=== PATIENT | male | born 1955 | race Caucasian/White ===

== ENCOUNTER 2021-04-27 22:38 | Inpatient (IN) | payer MEDICAID, MEDICARE ==
[~2021-04-27] VITALS: Ht 152.4 cm; Wt 58.6 kg
[2021-04-27] MEDS ORDERED: ROPI0.5T3 (23:32)
[2021-04-27] MEDS ORDERED: FURO20TA2 (23:32)
[2021-04-27] MEDS ORDERED: PANT20TA6 PO (23:32)
[2021-04-27] MEDS ORDERED: CARV3.12 PO (23:32)
[2021-04-27] MEDS ORDERED: HYDR-3363 (23:32)
[2021-04-27] MEDS ORDERED: ATOR40TA75 PO (23:32)
[2021-04-27] MEDS ORDERED: SPIR50TA4 (23:32)
[2021-04-27] MEDS ORDERED: MIRT-10 (23:32)
[2021-04-28 00:21] LABS: HEMATOCRIT 29.5 % (42.0-52.0); HEMOGLOBIN 8.8 g/dl (13.5-17.5); MEAN CORPUSCULAR HEMOGLOBIN 22.2 pg (27.0-33.0); MEAN CORPUSCULAR HGB CONC 29.8 g/dl (32.0-36.5); MEAN CORPUSCULAR VOLUME 74.3 fl (80.0-96.0); PLATELET COUNT, AUTOMATED 161 10^3/uL (150-450); RED BLOOD COUNT 3.97 10^6/uL (4.30-6.10); WHITE BLOOD COUNT 6.6 10^3/uL (4.0-10.0)
[2021-04-28 00:47] LABS: AMPHETAMINES LEVEL URINE NEGATIVE (NEGATIVE); BARBITURATES URINE NEGATIVE (NEGATIVE); BENZODIAZEPINES URINE NEGATIVE (NEGATIVE); CANNABINOIDS URINE POSITIVE (NEGATIVE); COCAINE METABOLITE URINE NEGATIVE (NEGATIVE); METHADONE URINE NEGATIVE (NEGATIVE); OPIATES URINE NEGATIVE (NEGATIVE); PHENCYCLIDINE URINE NEGATIVE (NEGATIVE)
[2021-04-28 00:59] LABS: RSV AMPLIFICATION NEGATIVE (NEGATIVE)
[2021-04-28 01:09] LABS: ACETAMINOPHEN LEVEL < 2.0 UG/ML (10.0-30.0); ALBUMIN 2.8 GM/DL (3.2-5.2); ALT/SGPT 17 U/L (12-78); BILIRUBIN,DIRECT 0.1 MG/DL (0.0-0.2); BILIRUBIN,TOTAL 0.4 MG/DL (0.2-1.0); BLOOD UREA NITROGEN 4 MG/DL (7-18); CALCIUM LEVEL 8.1 MG/DL (8.8-10.2); CARBON DIOXIDE LEVEL 26 MEQ/L (21-32); CHLORIDE LEVEL 105 MEQ/L (98-107); CREATININE FOR GFR 0.82 MG/DL (0.70-1.30); ETHYL ALCOHOL (ETHANOL) < 0.003 % (0.000-0.010); GLOMERULAR FILTRATION RATE > 60.0 (>49); GLUCOSE, FASTING 94 MG/DL (70-100); POTASSIUM SERUM 3.3 MEQ/L (3.5-5.1); SALICYLATE LEVEL 8.7 MG/DL (5.0-30.0); SODIUM LEVEL 136 MEQ/L (136-145); THYROID STIMULATING HORMONE 0.806 uIU/ML (0.358-3.740); TOTAL PROTEIN 5.8 GM/DL (6.4-8.2)
[2021-04-28] MEDS ORDERED: ALPRAZolam 0.5 MG TAB PO ONE (01:55)
[2021-04-28] MEDS ORDERED: POTASSIUM CHLORIDE 10MEQ SR TABLET PO ONE (04:30)
[2021-04-28 05:19] LABS: FERRITIN 10 NG/ML (26-388); IRON (FE) 16 UG/DL (65-175); PERCENT SATURATION 5.7 % (19.7-50.0); TOTAL IRON BINDING CAPACITY 283 UG/DL (250-450)
[2021-04-28] MEDS ORDERED: ADV100INH INH (06:32)
[2021-04-28] MEDS ORDERED: MIRT-62 PO (06:32)
[2021-04-28] MEDS ORDERED: HYDR-3363 PO (06:32)
[2021-04-28] MEDS ORDERED: SPIR50TA4 PO (06:32)
[2021-04-28] MEDS ORDERED: ROPI0.5T3 PO (06:32)
[2021-04-28] MEDS ORDERED: ALBU8.5H INH (06:32)
[2021-04-28] MEDS ORDERED: PANT40TA29 PO (06:32)
[2021-04-28] MEDS ORDERED: FURO20TA2 PO (06:32)
[2021-04-28] MEDS ORDERED: MELA1TAB9 PO (06:34)
[2021-04-28] MEDS ORDERED: VITA100093 PO (06:34)
[2021-04-28] MEDS ORDERED: MAALOX 30 ML SUSP *UDC PO PRN (08:00)
[2021-04-28] MEDS ORDERED: MOM 30ML SUSPENSION UDC PO PRN (08:00)
[2021-04-28] MEDS ORDERED: ACETAMINOPHEN TAB 650MG DOSE (2X325MG) PO PRN (08:00)
[2021-04-28 09:30] LABS: VITAMIN B12 LEVEL 731 PG/ML
[2021-04-28 09:31] LABS: FOLATE 6.5 NG/ML
[2021-04-28 09:32] VITALS: BP 108/71
[2021-04-28] MEDS ORDERED: FERR324T2 PO (11:09)
[2021-04-28] MEDS ORDERED: VITATAB73 PO (11:09)
[2021-04-28] MEDS ORDERED: ADV250INH INH (11:09)
[2021-04-28] MEDS ORDERED: VITMTA PO (11:09)
[2021-04-28] MEDS ORDERED: FOLI1TAB11 PO (11:09)
[2021-04-28] MEDS ORDERED: LIDVISCBTL SSP (11:09)
[2021-04-28] MEDS ORDERED: GABA-283 PO (11:09)
[2021-04-28] MEDS ORDERED: CARV12.5 PO (11:09)
[2021-04-28] MEDS ORDERED: THIA100T7 PO (11:09)
[2021-04-28] MEDS ORDERED: HOME MED LIST COMPLETE! XX SCH (11:10)
[2021-04-28] MEDS: CitaloPRAM (CeleXA) 10 MG TABLET PO SCH (12:08)
[2021-04-28] MEDS: hydrOXYzine 10 MG TAB PO PRN (14:46)
[2021-04-28 18:57] VITALS: BP_SYST 138; BP_SYST 147; BP_DIAS 74; BP_DIAS 84
[2021-04-28] MEDS: traZODone 50 MG TAB PO PRN (20:15)
[2021-04-29] MEDS: hydrOXYzine 10 MG TAB PO PRN ×2 (06:17→22:03)
[2021-04-29 06:43] VITALS: BP 96/51
[2021-04-29] MEDS: CitaloPRAM (CeleXA) 10 MG TABLET PO SCH (09:03)
[2021-04-29] MEDS: busPIRone 5 MG TAB PO SCH ×2 (12:13→20:25)
[2021-04-29 16:28] VITALS: BP 92/60
[2021-04-29] MEDS: traZODone 50 MG TAB PO PRN (20:25)
[2021-04-29] MEDS ORDERED: traZODone 50 MG TAB PO ONE (23:40)
[2021-04-29] MEDS ORDERED: GABAPENTIN 400MG CAP PO PRN (23:40)
[2021-04-30] VITALS (8 sets, daily range): BP systolic 70–102; BP diastolic 50–70
[2021-04-30] MEDS ORDERED: ALBUTEROL 90 MCG/ACT 8GM HFA INHALER INH PRN (00:25)
[2021-04-30] MEDS ORDERED: FERROUS SULFATE 325MG TAB PO SCH ×4 (00:30→09:00)
[2021-04-30] MEDS: hydrOXYzine 10 MG TAB PO PRN (06:52)
[2021-04-30] MEDS ORDERED: ADVAIR HFA 115/21MCG INHALER INH SCH (08:00)
[2021-04-30] MEDS ORDERED: MULTIVITAMINS/MINERALS THERAP 1 TAB PO SCH (09:00)
[2021-04-30] MEDS ORDERED: FUROSEMIDE 20 MG TAB PO SCH (09:00)
[2021-04-30] MEDS ORDERED: PANTOPRAZOLE 40MG TAB (PROTONIX) PO SCH (09:00)
[2021-04-30] MEDS ORDERED: ATORVASTATIN 20 MG TAB PO SCH (09:00)
[2021-04-30] MEDS ORDERED: THIAMINE 100 MG TAB PO SCH (09:00)
[2021-04-30] MEDS ORDERED: CARVedilol 6.25 MG TAB PO SCH (09:00)
[2021-04-30] MEDS ORDERED: SPIRONOLACTONE 50 MG TAB PO SCH (09:00)
[2021-04-30] MEDS ORDERED: FOLIC ACID 1 MG TAB PO SCH (09:00)
[2021-04-30] MEDS ORDERED: VITAMIN D 1,000 INTERNATIONAL UNITS TABLET PO SCH (09:00)
[2021-04-30] MEDS: busPIRone 5 MG TAB PO SCH (09:03)
[2021-04-30] MEDS: GABAPENTIN 400MG CAP PO SCH ×2 (09:03→15:58)
[2021-04-30] MEDS: CitaloPRAM (CeleXA) 10 MG TABLET PO SCH (09:04)
[2021-04-30] MEDS ORDERED: NS 500 ML IV ONE ×3 (19:00→21:00)
[2021-04-30] MEDS ORDERED: MIDODRINE 5 MG TAB PO ONE (19:55)
[2021-04-30] MEDS ORDERED: rOPINIRole 0.25 MG TAB(REQUIP) PO SCH (21:00)
[2021-04-30] MEDS ORDERED: MIRTAZAPINE 15 MG TAB PO SCH (21:00)
[2021-04-30 22:20] LABS: HEMOGLOBIN 8.8 g/dl (13.5-17.5); MEAN CORPUSCULAR HEMOGLOBIN 22.1 pg (27.0-33.0); MEAN CORPUSCULAR HGB CONC 29.3 g/dl (32.0-36.5); MEAN CORPUSCULAR VOLUME 75.2 fl (80.0-96.0); PLATELET COUNT, AUTOMATED 133 10^3/uL (150-450); RED BLOOD COUNT 3.99 10^6/uL (4.30-6.10); WHITE BLOOD COUNT 6.1 10^3/uL (4.0-10.0)
[2021-04-30 22:43] LABS: ALBUMIN 2.5 GM/DL (3.2-5.2); ALT/SGPT 19 U/L (12-78); BILIRUBIN,TOTAL 0.2 MG/DL (0.2-1.0); BLOOD UREA NITROGEN 5 MG/DL (7-18); CALCIUM LEVEL 7.8 MG/DL (8.8-10.2); CARBON DIOXIDE LEVEL 27 MEQ/L (21-32); CHLORIDE LEVEL 110 MEQ/L (98-107); CREATININE FOR GFR 0.84 MG/DL (0.70-1.30); GLOMERULAR FILTRATION RATE > 60.0 (>49); GLUCOSE, FASTING 90 MG/DL (70-100); POTASSIUM SERUM 3.7 MEQ/L (3.5-5.1); SODIUM LEVEL 140 MEQ/L (136-145); TOTAL PROTEIN 5.9 GM/DL (6.4-8.2)
== END 2021-04-30 22:15 | disposition still patient (30) | DRG 881 ==
LOC: M ED 22:38 → M ED INP 04-28 07:58 → M PSY 04-28 09:51
PROVIDERS: ADMIT Student in an Organized Health Care Education/Training Program; ATTEND Student in an Organized Health Care Education/Training Program
DX: F32.9 Major depressive disorder, single episode, unspecified (principal); R45.851 Suicidal ideations; J43.9 Emphysema, unspecified; K70.30 Alcoholic cirrhosis of liver without ascites; F17.210 Nicotine dependence, cigarettes, uncomplicated; F41.9 Anxiety disorder, unspecified; I10 Essential (primary) hypertension; J45.909 Unspecified asthma, uncomplicated; F10.21 Alcohol dependence, in remission; Z85.810 Personal history of malignant neoplasm of tongue; Z90.49 Acquired absence of other specified parts of digestive tract; Z20.822 Contact with and (suspected) exposure to COVID-19; Z79.899 Other long term (current) drug therapy

== ENCOUNTER 2021-04-30 21:28 | Inpatient (IN) | payer MEDICAID, MEDICARE ==
[~2021-04-30] VITALS: Ht 152.4 cm; Wt 50.3 kg
[~2021-04-30 21:28] MED LIST: ADV100INH INH; ADV250INH INH; ALBU8.5H INH; ATOR40TA75 PO; CARV12.5 PO; CARV3.12 PO; FERR324T2 PO; FOLI1TAB11 PO; FURO20TA2; FURO20TA2 PO; GABA-283 PO; HYDR-3363; HYDR-3363 PO; LIDVISCBTL SSP; MELA1TAB9 PO; MIRT-10; MIRT-62 PO; PANT20TA6 PO; PANT40TA29 PO; ROPI0.5T3; ROPI0.5T3 PO; SPIR50TA4; SPIR50TA4 PO; THIA100T7 PO; VITA100093 PO; VITATAB73 PO; VITMTA PO
[2021-04-30] MEDS ORDERED: MOM 30ML SUSPENSION UDC PO PRN (21:40)
[2021-04-30] MEDS ORDERED: MAALOX 30 ML SUSP *UDC PO PRN (21:40)
[2021-04-30] MEDS ORDERED: ACETAMINOPHEN TAB 650MG DOSE (2X325MG) PO PRN (21:40)
[2021-04-30] MEDS ORDERED: HYDROCORTISONE 100 MG/2 ML VIAL (J1720 PER 1) IV ONE (21:55)
[2021-04-30] MEDS ORDERED: ALBUTEROL 90 MCG/ACT 8GM HFA INHALER INH PRN (22:05)
[2021-04-30] MEDS ORDERED: NS 1,000 ML IV SCH (22:15)
[2021-04-30 22:30] VITALS: BP 82/54
[2021-04-30] MEDS ORDERED: HOME MED LIST COMPLETE! XX SCH (22:35)
[2021-04-30] MEDS ORDERED: LIDOCAINE VISCOUS 2% SOLN 15ML UDC SSP PRN (22:40)
[2021-04-30 23:00] VITALS: BP 85/48
[2021-04-30] MEDS: MIRTAZAPINE 15 MG TAB PO SCH (23:03)
[2021-04-30] MEDS: GABAPENTIN 400MG CAP PO SCH (23:03)
[2021-04-30] MEDS: PANTOPRAZOLE 40MG TAB (PROTONIX) PO SCH (23:03)
[2021-04-30 23:27] LABS: BASO % 0.5 % (0.0-1.0); EOS # 0.2 10^3/uL (0.0-0.5); EOS % 2.5 % (0.0-3.0); HEMATOCRIT 29.3 % (42.0-52.0); HEMOGLOBIN 8.7 g/dl (13.5-17.5); LYMPH % 17.2 % (24.0-44.0); MEAN CORPUSCULAR HEMOGLOBIN 22.3 pg (27.0-33.0); MEAN CORPUSCULAR HGB CONC 29.7 g/dl (32.0-36.5); MEAN CORPUSCULAR VOLUME 75.1 fl (80.0-96.0); MONO # 0.7 10^3/uL (0.0-0.8); MONO % 10.8 % (2.0-8.0); NEUTROPHILS # 4.1 10^3/uL (1.5-8.5); NEUTROPHILS % 68.5 % (36.0-66.0); PLATELET COUNT, AUTOMATED 121 10^3/uL (150-450)
[2021-04-30 23:30] VITALS: BP 90/52
[2021-04-30 23:44] LABS: INR 1.21; PROTHROMBIN TIME 15.7 SECONDS (12.7-14.5)
[2021-04-30 23:45] LABS: PARTIAL THROMBOPLASTIN TIME 33.5 SECONDS (25.9-37.0)
[2021-04-30 23:56] LABS: FREE T4 0.86 NG/DL (0.76-1.46); THYROID STIMULATING HORMONE 0.916 uIU/ML (0.358-3.740)
[2021-05-01] VITALS (7 sets, daily range): BP systolic 79–107; BP diastolic 52–60
[2021-05-01 00:06] LABS: CK-MB VALUE MASS 2.3 NG/ML (<3.6); MB/CK RELATIVE INDEX 3.97 (< OR =4)
[2021-05-01] MEDS: rOPINIRole 0.25 MG TAB(REQUIP) PO SCH ×2 (01:36→21:30)
[2021-05-01] MEDS: hydrOXYzine 25 MG TAB PO SCH ×2 (01:36→21:30)
[2021-05-01] MEDS: ADVAIR HFA 115/21MCG INHALER INH SCH ×2 (07:20→19:33)
[2021-05-01] MEDS: SPIRONOLACTONE 50 MG TAB PO SCH (08:30)
[2021-05-01] MEDS: CARVedilol 6.25 MG TAB PO SCH ×2 (08:31→21:00)
[2021-05-01] MEDS: FUROSEMIDE 20 MG TAB PO SCH (08:31)
[2021-05-01] MEDS: GABAPENTIN 400MG CAP PO SCH ×3 (08:47→21:30)
[2021-05-01] MEDS: THIAMINE 100 MG TAB PO SCH (08:47)
[2021-05-01] MEDS: ENOXAPARIN 40MG/0.4ML SYRINGE (J1650 PER 10MG) SC SCH (08:47)
[2021-05-01] MEDS: ATORVASTATIN 20 MG TAB PO SCH (08:47)
[2021-05-01] MEDS: DOCUSATE SODIUM 100MG CAPSULE PO SCH ×2 (08:47→21:30)
[2021-05-01] MEDS: PANTOPRAZOLE 40MG TAB (PROTONIX) PO SCH ×2 (08:47→21:30)
[2021-05-01] MEDS: FOLIC ACID 1 MG TAB PO SCH (08:48)
[2021-05-01] MEDS: IRON SUCROSE 100 MG in NS 100 ML OVER 1 HR IV SCH (08:49)
[2021-05-01] MEDS ORDERED: IRON SUCROSE 100MG 5ML VIAL (J1756 PER 1MG) IV SCH (09:00)
[2021-05-01] MEDS: MIDODRINE 2.5 MG TAB PO SCH ×2 (09:15→13:01)
[2021-05-01] MEDS: SODIUM CHLORIDE NASAL 0.65% SPRAY BTL (OCEAN) PRN ×2 (13:01→21:32)
[2021-05-01] MEDS ORDERED: NS 500 ML IV ONE (16:30)
[2021-05-01] MEDS: MIDODRINE 5 MG TAB PO SCH (16:52)
[2021-05-01 19:07] LABS: BLOOD UREA NITROGEN 5 MG/DL (7-18); CALCIUM LEVEL 7.7 MG/DL (8.8-10.2); CARBON DIOXIDE LEVEL 24 MEQ/L (21-32); CHLORIDE LEVEL 109 MEQ/L (98-107); CREATININE FOR GFR 0.79 MG/DL (0.70-1.30); GLOMERULAR FILTRATION RATE > 60.0 (>49); GLUCOSE, FASTING 73 MG/DL (70-100); MAGNESIUM LEVEL 1.8 MG/DL (1.8-2.4); POTASSIUM SERUM 3.6 MEQ/L (3.5-5.1); SODIUM LEVEL 139 MEQ/L (136-145)
[2021-05-01] MEDS: MIRTAZAPINE 15 MG TAB PO SCH (21:30)
[2021-05-02] VITALS (7 sets, daily range): BP systolic 82–110; BP diastolic 44–64
[2021-05-02] MEDS ORDERED: NS 1,000 ML IV ONE (04:20)
[2021-05-02] MEDS ORDERED: MIDODRINE 5 MG TAB PO ONE (04:20)
[2021-05-02] MEDS ORDERED: NS 500 ML IV ONE (04:20)
[2021-05-02 05:17] LABS: HEMATOCRIT 29.1 % (42.0-52.0); HEMOGLOBIN 8.5 g/dl (13.5-17.5); MEAN CORPUSCULAR HEMOGLOBIN 22.3 pg (27.0-33.0); MEAN CORPUSCULAR HGB CONC 29.2 g/dl (32.0-36.5); MEAN CORPUSCULAR VOLUME 76.4 fl (80.0-96.0); PLATELET COUNT, AUTOMATED 136 10^3/uL (150-450); RED BLOOD COUNT 3.81 10^6/uL (4.30-6.10); WHITE BLOOD COUNT 6.5 10^3/uL (4.0-10.0)
[2021-05-02 05:33] LABS: ALBUMIN 2.4 GM/DL (3.2-5.2); ALT/SGPT 15 U/L (12-78); BILIRUBIN,TOTAL 0.2 MG/DL (0.2-1.0); BLOOD UREA NITROGEN 4 MG/DL (7-18); CALCIUM LEVEL 7.7 MG/DL (8.8-10.2); CARBON DIOXIDE LEVEL 26 MEQ/L (21-32); CHLORIDE LEVEL 111 MEQ/L (98-107); CREATININE FOR GFR 0.78 MG/DL (0.70-1.30); GLOMERULAR FILTRATION RATE > 60.0 (>49); GLUCOSE, FASTING 80 MG/DL (70-100); MAGNESIUM LEVEL 1.9 MG/DL (1.8-2.4); POTASSIUM SERUM 3.6 MEQ/L (3.5-5.1); SODIUM LEVEL 140 MEQ/L (136-145); TOTAL PROTEIN 5.1 GM/DL (6.4-8.2)
[2021-05-02] MEDS: MIDODRINE 5 MG TAB PO SCH ×3 (08:22→16:10)
[2021-05-02] MEDS: PANTOPRAZOLE 40MG TAB (PROTONIX) PO SCH ×2 (08:22→20:35)
[2021-05-02] MEDS: THIAMINE 100 MG TAB PO SCH (08:22)
[2021-05-02] MEDS: ATORVASTATIN 20 MG TAB PO SCH (08:22)
[2021-05-02] MEDS: DOCUSATE SODIUM 100MG CAPSULE PO SCH ×2 (08:22→20:34)
[2021-05-02] MEDS: FOLIC ACID 1 MG TAB PO SCH (08:22)
[2021-05-02] MEDS: GABAPENTIN 400MG CAP PO SCH ×3 (08:22→20:34)
[2021-05-02] MEDS: SPIRONOLACTONE 50 MG TAB PO SCH (08:23)
[2021-05-02] MEDS: CARVedilol 6.25 MG TAB PO SCH ×2 (08:23→20:35)
[2021-05-02] MEDS: ENOXAPARIN 40MG/0.4ML SYRINGE (J1650 PER 10MG) SC SCH (08:23)
[2021-05-02] MEDS: FUROSEMIDE 20 MG TAB PO SCH (08:23)
[2021-05-02] MEDS: IRON SUCROSE 100 MG in NS 100 ML OVER 1 HR IV SCH (08:24)
[2021-05-02] MEDS: ADVAIR HFA 115/21MCG INHALER INH SCH ×2 (08:28→19:21)
[2021-05-02] MEDS: SODIUM CHLORIDE NASAL 0.65% SPRAY BTL (OCEAN) PRN (12:36)
[2021-05-02] MEDS: rOPINIRole 0.25 MG TAB(REQUIP) PO SCH (20:34)
[2021-05-02] MEDS: hydrOXYzine 25 MG TAB PO SCH (20:34)
[2021-05-02] MEDS: MIRTAZAPINE 15 MG TAB PO SCH (20:35)
[2021-05-03] VITALS (8 sets, daily range): BP systolic 82–100; BP diastolic 50–62
[2021-05-03] MEDS ORDERED: NS 500 ML IV ONE (04:20)
[2021-05-03] MEDS ORDERED: MIDODRINE 2.5 MG TAB PO ONE (04:45)
[2021-05-03 05:58] LABS: HEMATOCRIT 29.1 % (42.0-52.0); HEMOGLOBIN 8.8 g/dl (13.5-17.5); MEAN CORPUSCULAR HEMOGLOBIN 22.6 pg (27.0-33.0); MEAN CORPUSCULAR HGB CONC 30.2 g/dl (32.0-36.5); MEAN CORPUSCULAR VOLUME 74.6 fl (80.0-96.0); PLATELET COUNT, AUTOMATED 139 10^3/uL (150-450); WHITE BLOOD COUNT 5.6 10^3/uL (4.0-10.0)
[2021-05-03 06:24] LABS: ALBUMIN 2.6 GM/DL (3.2-5.2); ALT/SGPT 19 U/L (12-78); BILIRUBIN,TOTAL 0.2 MG/DL (0.2-1.0); BLOOD UREA NITROGEN 4 MG/DL (7-18); CALCIUM LEVEL 8.2 MG/DL (8.8-10.2); CARBON DIOXIDE LEVEL 26 MEQ/L (21-32); CHLORIDE LEVEL 112 MEQ/L (98-107); CREATININE FOR GFR 0.74 MG/DL (0.70-1.30); GLOMERULAR FILTRATION RATE > 60.0 (>49); GLUCOSE, FASTING 93 MG/DL (70-100); MAGNESIUM LEVEL 1.8 MG/DL (1.8-2.4); POTASSIUM SERUM 3.5 MEQ/L (3.5-5.1); SODIUM LEVEL 141 MEQ/L (136-145); TOTAL PROTEIN 5.3 GM/DL (6.4-8.2)
[2021-05-03] MEDS: ADVAIR HFA 115/21MCG INHALER INH SCH (07:22)
[2021-05-03] MEDS: CARVedilol 6.25 MG TAB PO SCH (08:01)
[2021-05-03] MEDS: SPIRONOLACTONE 50 MG TAB PO SCH (08:01)
[2021-05-03] MEDS: FUROSEMIDE 20 MG TAB PO SCH (08:01)
[2021-05-03] MEDS: ATORVASTATIN 20 MG TAB PO SCH (08:34)
[2021-05-03] MEDS: MIDODRINE 5 MG TAB PO SCH ×3 (08:34→15:25)
[2021-05-03] MEDS: DOCUSATE SODIUM 100MG CAPSULE PO SCH (08:34)
[2021-05-03] MEDS: PANTOPRAZOLE 40MG TAB (PROTONIX) PO SCH (08:35)
[2021-05-03] MEDS: THIAMINE 100 MG TAB PO SCH (08:35)
[2021-05-03] MEDS: GABAPENTIN 400MG CAP PO SCH ×2 (08:35→15:25)
[2021-05-03] MEDS: ENOXAPARIN 40MG/0.4ML SYRINGE (J1650 PER 10MG) SC SCH (08:35)
[2021-05-03] MEDS: FOLIC ACID 1 MG TAB PO SCH (08:35)
[2021-05-03] MEDS: IRON SUCROSE 100 MG in NS 100 ML OVER 1 HR IV SCH (08:35)
[2021-05-03] MEDS ORDERED: MIDO5TA PO (11:39)
[2021-05-03] MEDS ORDERED: ATOR1TAB21 PO (14:08)
== END 2021-05-03 15:43 | DRG 433 ==
LOC: M PCU 22:27
PROVIDERS: ADMIT Internal Medicine; ATTEND Internal Medicine
DX: K70.30 Alcoholic cirrhosis of liver without ascites (principal); F33.1 Major depressive disorder, recurrent, moderate; R45.851 Suicidal ideations; K76.6 Portal hypertension; I25.10 Atherosclerotic heart disease of native coronary artery without angina pectoris; I95.9 Hypotension, unspecified; D50.9 Iron deficiency anemia, unspecified; J45.909 Unspecified asthma, uncomplicated; F41.9 Anxiety disorder, unspecified; J43.9 Emphysema, unspecified; F10.21 Alcohol dependence, in remission; F17.200 Nicotine dependence, unspecified, uncomplicated; G25.81 Restless legs syndrome; Z85.810 Personal history of malignant neoplasm of tongue; Z79.899 Other long term (current) drug therapy

== ENCOUNTER 2021-05-03 13:28 | Inpatient (IN) | payer MEDICARE ==
[~2021-05-03] VITALS: Ht 152.4 cm; Wt 59.1 kg
[~2021-05-03 13:28] MED LIST changes: +MIDO5TA PO
[2021-05-03] MEDS ORDERED: MAALOX 30 ML SUSP *UDC PO PRN (13:45)
[2021-05-03] MEDS ORDERED: traZODone 50 MG TAB PO PRN (13:45)
[2021-05-03] MEDS ORDERED: MOM 30ML SUSPENSION UDC PO PRN (13:45)
[2021-05-03] MEDS ORDERED: ATOR1TAB21 PO (14:08)
[2021-05-03] MEDS ORDERED: HOME MED LIST COMPLETE! XX SCH (14:10)
[2021-05-03] MEDS ORDERED: ALBUTEROL 90 MCG/ACT 8GM HFA INHALER INH PRN (14:15)
[2021-05-03] MEDS ORDERED: SODIUM CHLORIDE NASAL 0.65% SPRAY BTL (OCEAN) PRN (14:20)
[2021-05-03] MEDS ORDERED: ADVAIR HFA 115/21MCG INHALER INH PRN (14:25)
[2021-05-03 15:46] VITALS: BP 98/62
[2021-05-03] MEDS: FUROSEMIDE 20 MG TAB PO SCH (16:34)
[2021-05-03] MEDS: GABAPENTIN 400MG CAP PO SCH ×2 (16:34→20:38)
[2021-05-03] MEDS: MIDODRINE 5 MG TAB PO SCH (16:35)
[2021-05-03 20:20] VITALS: BP 109/72
[2021-05-03] MEDS: hydrOXYzine 25 MG TAB PO SCH (20:38)
[2021-05-03] MEDS: DOCUSATE SODIUM 100MG CAPSULE PO SCH (20:38)
[2021-05-03] MEDS: PANTOPRAZOLE 40MG TAB (PROTONIX) PO SCH (20:38)
[2021-05-03] MEDS: rOPINIRole 0.25 MG TAB(REQUIP) PO SCH (20:38)
[2021-05-03] MEDS: MIRTAZAPINE 15 MG TAB PO SCH (20:38)
[2021-05-03] MEDS ORDERED: CARVedilol 6.25 MG TAB PO SCH (21:00)
[2021-05-03] MEDS: ACETAMINOPHEN TAB 650MG DOSE (2X325MG) PO PRN (21:43)
[2021-05-04 06:00] VITALS: BP 92/60
[2021-05-04] MEDS: DOCUSATE SODIUM 100MG CAPSULE PO SCH ×2 (08:44→20:50)
[2021-05-04] MEDS: PANTOPRAZOLE 40MG TAB (PROTONIX) PO SCH ×2 (08:44→20:50)
[2021-05-04] MEDS: GABAPENTIN 400MG CAP PO SCH ×3 (08:44→20:50)
[2021-05-04] MEDS: MIDODRINE 5 MG TAB PO SCH ×3 (08:44→16:17)
[2021-05-04] MEDS: FUROSEMIDE 20 MG TAB PO SCH (08:44)
[2021-05-04] MEDS: ATORVASTATIN 20 MG TAB PO SCH (08:44)
[2021-05-04] MEDS: THIAMINE 100 MG TAB PO SCH (08:44)
[2021-05-04] MEDS: FOLIC ACID 1 MG TAB PO SCH (08:44)
[2021-05-04] MEDS: ADVAIR HFA 115/21MCG INHALER INH SCH (08:45)
[2021-05-04] MEDS ORDERED: SPIRONOLACTONE 50 MG TAB PO SCH (09:00)
[2021-05-04 18:13] VITALS: BP 110/60
[2021-05-04] MEDS: rOPINIRole 0.25 MG TAB(REQUIP) PO SCH (20:50)
[2021-05-04] MEDS: MIRTAZAPINE 15 MG TAB PO SCH (20:50)
[2021-05-04] MEDS: hydrOXYzine 25 MG TAB PO SCH (20:50)
[2021-05-05] MEDS: ACETAMINOPHEN TAB 650MG DOSE (2X325MG) PO PRN (06:14)
[2021-05-05 06:30] VITALS: BP 102/60
[2021-05-05] MEDS: FOLIC ACID 1 MG TAB PO SCH (08:21)
[2021-05-05] MEDS: FUROSEMIDE 20 MG TAB PO SCH (08:21)
[2021-05-05] MEDS: DOCUSATE SODIUM 100MG CAPSULE PO SCH ×2 (08:21→20:25)
[2021-05-05] MEDS: PANTOPRAZOLE 40MG TAB (PROTONIX) PO SCH ×2 (08:21→20:25)
[2021-05-05] MEDS: THIAMINE 100 MG TAB PO SCH (08:21)
[2021-05-05] MEDS: MIDODRINE 5 MG TAB PO SCH ×3 (08:21→15:29)
[2021-05-05] MEDS: ATORVASTATIN 20 MG TAB PO SCH (08:21)
[2021-05-05] MEDS: GABAPENTIN 400MG CAP PO SCH ×3 (08:21→20:25)
[2021-05-05] MEDS: ADVAIR HFA 115/21MCG INHALER INH SCH (08:22)
[2021-05-05 19:01] VITALS: BP 130/88
[2021-05-05] MEDS: MIRTAZAPINE 15 MG TAB PO SCH (20:25)
[2021-05-05] MEDS: rOPINIRole 0.25 MG TAB(REQUIP) PO SCH (20:25)
[2021-05-05] MEDS: hydrOXYzine 25 MG TAB PO SCH (20:25)
[2021-05-06] MEDS: ACETAMINOPHEN TAB 650MG DOSE (2X325MG) PO PRN (01:52)
[2021-05-06 06:25] VITALS: BP 127/70
[2021-05-06 08:48] VITALS: BP 127/70
[2021-05-06] MEDS: MIDODRINE 5 MG TAB PO SCH ×2 (09:00→12:24)
[2021-05-06] MEDS: THIAMINE 100 MG TAB PO SCH (09:02)
[2021-05-06] MEDS: ADVAIR HFA 115/21MCG INHALER INH SCH (09:03)
[2021-05-06] MEDS: GABAPENTIN 400MG CAP PO SCH (09:03)
[2021-05-06] MEDS: FOLIC ACID 1 MG TAB PO SCH (09:03)
[2021-05-06] MEDS: DOCUSATE SODIUM 100MG CAPSULE PO SCH (09:03)
[2021-05-06] MEDS: FUROSEMIDE 20 MG TAB PO SCH (09:03)
[2021-05-06] MEDS: PANTOPRAZOLE 40MG TAB (PROTONIX) PO SCH (09:03)
[2021-05-06] MEDS: ATORVASTATIN 20 MG TAB PO SCH (09:03)
[2021-05-06] MEDS ORDERED: ADVA115A INH (09:39)
[2021-05-06] MEDS ORDERED: FURO20TA2 PO (09:39)
[2021-05-06] MEDS ORDERED: COLA100C5 PO (09:39)
[2021-05-06] MEDS ORDERED: TRAZ-252 PO (12:26)
== END 2021-05-06 13:08 | disposition home or self-care (01) | DRG 885 ==
LOC: M PSY 15:53
PROVIDERS: ADMIT Psychiatry & Neurology Psychiatry; ATTEND Psychiatry & Neurology Psychiatry
DX: F33.1 Major depressive disorder, recurrent, moderate (principal); I69.398 Other sequelae of cerebral infarction; K70.30 Alcoholic cirrhosis of liver without ascites; I10 Essential (primary) hypertension; I25.10 Atherosclerotic heart disease of native coronary artery without angina pectoris; G62.9 Polyneuropathy, unspecified; K21.9 Gastro-esophageal reflux disease without esophagitis; F10.21 Alcohol dependence, in remission; J45.909 Unspecified asthma, uncomplicated; E55.9 Vitamin D deficiency, unspecified; F17.200 Nicotine dependence, unspecified, uncomplicated; F41.9 Anxiety disorder, unspecified; G25.81 Restless legs syndrome; Z85.810 Personal history of malignant neoplasm of tongue; Z79.899 Other long term (current) drug therapy